=== PATIENT | female | born 1945 | race Caucasian/White ===

== ENCOUNTER 2018-03-15 06:42 | Day surgery (SDC) | payer OTHER | END 2018-03-15 12:20 | disposition home or self-care (01) | LOC: AMB-ENDOS 06:42 | DX: D12.0 Benign neoplasm of cecum (principal); D12.2 Benign neoplasm of ascending colon; D12.4 Benign neoplasm of descending colon; K57.32 Diverticulitis of large intestine without perforation or abscess without bleeding; K64.8 Other hemorrhoids ==

== ENCOUNTER 2020-04-23 06:11 | Day surgery (SDC) | payer OTHER | END 2020-04-23 11:50 | disposition home or self-care (01) | LOC: AMB-ENDOS 06:11 → ADM 08:45 → AMB-ENDOS 11:50 | PROVIDERS: ATTEND Surgery | DX: D12.3 Benign neoplasm of transverse colon (principal); K64.8 Other hemorrhoids ==